=== PATIENT | female | born 1990 | race Caucasian/White ===

== ENCOUNTER 2020-12-22 08:27 | Inpatient (IN) ==
[2020-12-22] MEDS ORDERED: Buffered Lidocaine 1% SYRIN 1 ml INTRADERM ONE (08:44)
[2020-12-22] MEDS ORDERED: Lactated Ringers 1000 ml BAG 1,000 ML IV ONE ×2 (08:44→12:22)
[2020-12-22] MEDS ORDERED: Lactated Ringers 1000 ml BAG 1,000 ML IV SCH ×2 (09:00→13:00)
[2020-12-22 09:29] LABS: ABS Eosinophils 0.1 10^3/ul (0-0.6); ABS Lymphocytes 1.5 10^3/ul (1.0-4.8); ABS Monocytes 0.5 10^3/ul (0-0.8); ABS Neutrophils 4.9 10^3/ul (1.5-7.7); Eosinophil % 0.8 %; Hematocrit 26 % (35-47); Hemoglobin 8.7 g/dL (12.0-16.0); Lymphocyte % 21.9 %; Mean Corpuscular HGB Conc 33 g/dL (31-36); Mean Corpuscular Hemoglobin 27 pg (27-31); Mean Corpuscular Volume 80 fL (80-97); Mean Platelet Volume 11.4 fL (7.4-10.4); Platelet Count 127 10^3/uL (150-450); Red Blood Count 3.26 10^6 /uL (3.70-4.87); Red Cell Distribution Width 14 % (10-15)
[2020-12-22 09:45] LABS: Urine Benzodiazepine Screen None Detected (None Detect); Urine Cannabinoids Screen None Detected (None Detect); Urine Opiates Screen None Detected (None Detect)
[2020-12-22 09:47] LABS: Albumin/Globulin Ratio 1.1 (1-3); BUN/Creatinine Ratio 11.1 (8-20); Calcium 8.1 mg/dL (8.6-10.3); EGFR African American 115.1 (>60); EGFR Non-African American 95.1 (>60); Globulin 2.8 g/dL (2-4); Total Bilirubin 0.8 mg/dL (0.2-1.0); Total Protein 5.8 g/dL (6.4-8.9)
[2020-12-22] MEDS ORDERED: Oxytocin in LR 20 UNITS/1,000 ML BAG IVPB SCH ×2 (11:00→17:00)
[2020-12-22] MEDS ORDERED: OBEPIDURAL 250 ML EPIDURAL ONE (11:27)
[2020-12-22] MEDS ORDERED: Sodium Citrate/Citric Acid LIQ 15 ML UDC PO PRN (12:22)
[2020-12-22] MEDS ORDERED: Phenylephrine 40 mcg/mL 10mL (400mcg) SYRINGE IV PUSH PRN ×2 (12:22)
[2020-12-22] MEDS ORDERED: Lactated Ringers 1000 ml BAG 500 ML IV PRN ×2 (12:22)
[2020-12-22 14:13] LABS: Urine Appearance Clear; Urine Bilirubin Negative (Negative); Urine Blood 3+ (Negative); Urine Color Straw; Urine Glucose Negative (Negative); Urine Ketones Negative (Negative); Urine Nitrite Negative (Negative); Urine Protein 1+(30 mg/dL) (Negative); Urine Specific Gravity 1.003 (1.002-1.030); Urine Urobilinogen Negative (Negative)
[2020-12-22 14:16] LABS: Urine Bacteria 1+ (Absent); Urine Red Blood Cell Trace(0-2/hpf) (Absent); Urine Squamous Epithelial Cell Present (Absent); Urine White Blood Cell Trace(0-5/hpf) (Absent)
[2020-12-22] MEDS ORDERED: Witch Hazel PAD JAR TOPICAL PRN (16:33)
[2020-12-22] MEDS ORDERED: Glycerin ADULT 2.4 gm SUPP PR PRN (16:33)
[2020-12-22] MEDS ORDERED: Dibucaine 1% OINT 28.35 GM TUBE PR PRN (16:33)
[2020-12-22] MEDS ORDERED: Chloroprocaine 3% 20 ml VIAL ONE (16:50)
[2020-12-22] MEDS ORDERED: Lidocaine 1% VIAL 10 MG/ML VIAL ONE (18:33)
[2020-12-22] MEDS ORDERED: HYDROmorphone 0.5 MG/0.5 ML SYRINGE IV SLOW PU PRN (18:49)
[2020-12-22 18:50] LABS: Hematocrit 23 % (35-47); Hemoglobin 7.5 g/dL (12.0-16.0); Mean Corpuscular HGB Conc 32 g/dL (31-36); Mean Corpuscular Hemoglobin 26 pg (27-31); Mean Corpuscular Volume 82 fL (80-97); Mean Platelet Volume 11.6 fL (7.4-10.4); Platelet Count 152 10^3/uL (150-450); Red Blood Count 2.85 10^6 /uL (3.70-4.87); Red Cell Distribution Width 14 % (10-15); White Blood Count 24.1 10^3/uL (3.5-10.8)
[2020-12-22 19:04] LABS: Platelet Count 149 10^3/ul (150-450)
[2020-12-22] MEDS ORDERED: oxyCODONE/Acetamin 5/325 mg TAB PO PRN (19:05)
[2020-12-22 19:38] LABS: Fibrinogen 234.9 mg/dL (110.8-404.3); INR 0.94 (0.82-1.09)
[2020-12-22 19:44] LABS: Schistocytes ABSENT
[2020-12-22 21:14] LABS: Activated Partial Thrombo Time 20.6 seconds (26.0-38.0)
[2020-12-22] MEDS ORDERED: ceFOXitin 2 GM IVPREMIX 2 GM/50 ML BAG IVPB ONE (21:46)
[2020-12-22] MEDS: oxyCODONE/Acetamin 5/325 mg TAB PO PRN (23:11)
[2020-12-22 23:21] LABS: Hematocrit 24 % (35-47); Hemoglobin 7.9 g/dL (12.0-16.0); Mean Corpuscular HGB Conc 34 g/dL (31-36); Mean Corpuscular Hemoglobin 27 pg (27-31); Mean Corpuscular Volume 80 fL (80-97); Red Blood Count 2.96 10^6 /uL (3.70-4.87); Red Cell Distribution Width 14 % (10-15); White Blood Count 15.2 10^3/uL (3.5-10.8)
[2020-12-23 00:56] LABS: Mean Platelet Volume 11.1 fL (7.4-10.4); Platelet Count 94 10^3/uL (150-450)
[2020-12-23] MEDS: oxyCODONE/Acetamin 5/325 mg TAB PO PRN ×2 (03:19→07:23)
[2020-12-23 08:56] LABS: ABS Basophils 0.1 10^3/ul (0-0.2); ABS Lymphocytes 1.8 10^3/ul (1.0-4.8); ABS Neutrophils 9.4 10^3/ul (1.5-7.7); Eosinophil % 0.2 %; Hematocrit 24 % (35-47); Lymphocyte % 14.7 %; Mean Corpuscular HGB Conc 34 g/dL (31-36); Mean Corpuscular Hemoglobin 27 pg (27-31); Mean Corpuscular Volume 79 fL (80-97); Mean Platelet Volume 11.7 fL (7.4-10.4); Platelet Count 92 10^3/uL (150-450); Red Blood Count 2.99 10^6 /uL (3.70-4.87); Red Cell Distribution Width 14 % (10-15); White Blood Count 12.2 10^3/uL (3.5-10.8)
[2020-12-23 12:19] LABS: Albumin 2.2 g/dL (3.2-5.2); Calcium 7.6 mg/dL (8.6-10.3); Potassium 4.3 mmol/L (3.5-5.0); Total Bilirubin 1.4 mg/dL (0.2-1.0)
[2020-12-23 12:25] LABS: Albumin/Globulin Ratio 1.3 (1-3); BUN/Creatinine Ratio 9.5 (8-20); EGFR African American 111.5 (>60); EGFR Non-African American 92.1 (>60); Globulin 1.7 g/dL (2-4); Total Protein 3.9 g/dL (6.4-8.9)
[2020-12-23] MEDS: OBEPIDURAL 250 ML EPIDURAL SCH ×2 (13:01→13:02)
[2020-12-23 21:06] LABS: ABS Lymphocytes 2.4 10^3/ul (1.0-4.8); ABS Monocytes 0.9 10^3/ul (0-0.8); ABS Neutrophils 9.8 10^3/ul (1.5-7.7); Eosinophil % 0.2 %; Hematocrit 28 % (35-47); Hemoglobin 9.3 g/dL (12.0-16.0); Lymphocyte % 17.8 %; Mean Corpuscular HGB Conc 34 g/dL (31-36); Mean Corpuscular Hemoglobin 27 pg (27-31); Mean Corpuscular Volume 79 fL (80-97); Mean Platelet Volume 11.3 fL (7.4-10.4); Platelet Count 118 10^3/uL (150-450); Red Blood Count 3.46 10^6 /uL (3.70-4.87); Red Cell Distribution Width 15 % (10-15); White Blood Count 13.2 10^3/uL (3.5-10.8)
[2020-12-23 21:39] LABS: Albumin 2.6 g/dL (3.2-5.2); BUN/Creatinine Ratio 12.8 (8-20); EGFR African American 104.9 (>60); EGFR Non-African American 86.7 (>60); Globulin 2.5 g/dL (2-4); Potassium 4.3 mmol/L (3.5-5.0); Total Bilirubin 0.9 mg/dL (0.2-1.0); Total Protein 5.1 g/dL (6.4-8.9)
[2020-12-24 09:27] VITALS: BP 137/82
== END 2020-12-24 14:33 | disposition home or self-care (01) | DRG 541 ==
LOC: MCHOBOUT 08:27 → MCHOB 08:57
PROVIDERS: ADMIT Obstetrics & Gynecology; ATTEND Obstetrics & Gynecology